=== PATIENT | female | born 1960 | race Caucasian/White ===

== ENCOUNTER 2022-11-21 13:56 | Inpatient (IN) | payer BC ==
[~2022-11-21] VITALS: Ht 170.2 cm; Wt 48.5 kg
[2022-11-21 14:45] LABS: HEMATOCRIT 36.9 % (31.2-41.9); MEAN CORPUSCULAR VOLUME 94.2 fL (75.5-95.3); RED BLOOD CELL COUNT(AUTO) 3.92 MIL/uL (3.63-4.92)
[2022-11-21 14:54] LABS: BASOPHILS % (AUTO) 0.9 % (0.0-2.0); EOSINOPHILS # (AUTO) 0.1 K/uL (0.0-0.7); HEMOGLOBIN 12.5 g/dL (10.9-14.3); LYMPHOCYTES # (AUTO) 1.4 K/uL (0.8-4.8); LYMPHOCYTES % (AUTO) 31.7 % (20.5-51.5); MEAN CORPUSCULAR HEMOGLOBIN 31.8 uug (24.7-32.8); MEAN CORPUSCULAR HGB CONC 34 g/dL (32.3-35.6); MONOCYTES # (AUTO) 0.4 K/uL (0.1-1.30); NEUTROPHILS # (AUTO) 2.5 K/uL (1.8-8.9); NEUTROPHILS % (AUTO) 55.4 % (38.5-71.5); PLATELET COUNT (AUTO) 183 K/uL (179-408); RED CELL DISTRIBUTION WIDTH 13.5 % (12.3-17.7); WHITE BLOOD COUNT (AUTO) 4.5 K/uL (3.8-11.8)
[2022-11-21 14:55] LABS: DIFFERENTIAL COMMENT 1
[2022-11-21 14:59] LABS: AMMONIA < 10 umol/L (11-32)
[2022-11-21 15:00] LABS: ETHANOL < 3 MG/DL (0-10)
[2022-11-21 15:06] LABS: THYROID STIMULATING HORMONE 0.971 mIU/mL (0.358-3.740)
[2022-11-21 15:09] LABS: ACETAMINOPHEN < 2.0 ug/mL (10-30); ALANINE AMINOTRANSFERASE 19 U/L (14-59); ALBUMIN 3.8 g/dL (3.4-5.0); ALKALINE PHOSPHATASE 69 U/L (50-136); ASPARTATE AMINOTRANSFERASE 16 U/L (15-37); BILIRUBIN,DIRECT 0.1 mg/dL (0.0-0.2); BILIRUBIN,TOTAL 0.4 mg/dL (0.2-1.0); CALCIUM 9.3 mg/dL (8.5-10.1); CARBON DIOXIDE 29 mmol/L (21-32); CHLORIDE 102 mmol/L (98-107); CREATININE 1.1 mg/dL (0.6-1.3); GLUCOSE 131 mg/dL (74-106); POTASSIUM 3.3 mmol/L (3.5-5.1); SODIUM SERUM 140 mmol/L (136-145); TOTAL PROTEIN, SERUM 6.5 g/dL (6.4-8.2); UREA NITROGEN, BLOOD 11 mg/dL (7-18)
[2022-11-21 16:10] LABS: *BILIRUBIN,URIN NEGATIVE (NEGATIVE); *CLARITY,URINE CLEAR (CLEAR); *COLOR,URINE YELLOW (YELLOW); *KETONES,URINE NEGATIVE (NEGATIVE); *PROTEIN,URINE NEGATIVE (NEGATIVE); *UROBILINOGEN,URINE 0.2 E.U./dl (NORMAL); LEUKOCYTE ESTERASE ,URINE NEGATIVE (NEGATIVE); NITRITE, URINE NEGATIVE (NEGATIVE); PH,URINE 7.5 (5.0-8.0); UGLUCOSE NEGATIVE (NEGATIVE)
[2022-11-21 16:14] LABS: *BLOOD, URINE TRACE (NEGATIVE)
[2022-11-21 16:26] LABS: *AMPHETAMINE, URINE NEGATIVE (NEGATIVE); *BARBITURATE, URINE POSITIVE (NEGATIVE); *BENZODIAZEPINE, URINE NEGATIVE (NEGATIVE); *CANNABINOID, URINE NEGATIVE (NEGATIVE); *COCCAINE, URINE NEGATIVE (NEGATIVE); *OPIATE, URINE NEGATIVE (NEGATIVE); *PHENCYCLIDINE SCREEN,URINE NEGATIVE (NEGATIVE); FENTANYL, URINE NEGATIVE (NEGATIVE)
[2022-11-21 16:34] LABS: BACTERIA,URINE FEW /HPF (NONE SEEN); RBC,URINE 0-3 /HPF (0-3); SQUAMOUS EPITHELIAL CELL,UR FEW /HPF (NONE SEEN); URINE AMORPHOUS URATE MODERATE /HPF; WBC,URINE NONE SEEN /HPF (0-3)
[2022-11-21] MEDS ORDERED: ONDANSETRON 4 MG/2 ML VIAL IV ONE (19:45)
[2022-11-21] MEDS ORDERED: ONDANSETRON 4 MG/2 ML VIAL ONE (19:54)
[2022-11-21 21:30] VITALS: BP 140/85; TEMP 97.1; O2SAT 98
[2022-11-21] MEDS ORDERED: LAMO200T10 PO (22:54)
[2022-11-21] MEDS ORDERED: PREG100C PO (22:54)
[2022-11-21] MEDS ORDERED: AMIT50TA3 PO (22:54)
[2022-11-21] MEDS ORDERED: CLON1TAB12 PO (22:54)
[2022-11-21] MEDS ORDERED: TRAM100T23 PO (22:54)
[2022-11-21] MEDS ORDERED: QUET300T2 PO (22:54)
[2022-11-21] MEDS ORDERED: PRIM250T32 PO (22:54)
[2022-11-21] MEDS ORDERED: NITR50CA4 PO (22:54)
[2022-11-21] MEDS ORDERED: PRIMIDONE 250 MG TABLET PO SCH (23:30)
[2022-11-21] MEDS ORDERED: AMITRIPTYLINE HCL 50 MG TABLET PO SCH (23:30)
[2022-11-21] MEDS ORDERED: NITROFURANTOIN/NITROFURAN MAC 100 MG CAPSULE PO SCH (23:30)
[2022-11-21] MEDS ORDERED: QUETIAPINE FUMARATE 200 MG TABLET PO SCH (23:30)
[2022-11-22 04:00] VITALS: BP 108/70; TEMP 98; O2SAT 97
[2022-11-22 08:15] VITALS: BP 141/79; TEMP 97.9; O2SAT 98
[2022-11-22] MEDS ORDERED: PREGABALIN 100 MG CAPSULE PO SCH (09:00)
[2022-11-22] MEDS ORDERED: CLONAZEPAM 1 MG TABLET PO SCH (09:00)
[2022-11-22] MEDS ORDERED: TRAMADOL HCL 50 MG TABLET PO SCH ×3 (09:00→12:26)
[2022-11-22] MEDS ORDERED: LAMOTRIGINE 200 MG TABLET PO ONE (09:00)
[2022-11-22] MEDS ORDERED: LAMOTRIGINE 200 MG TABLET PO SCH (09:00)
[2022-11-22] MEDS: PREGABALIN 100 MG CAPSULE PO SCH ×2 (09:25→12:15)
[2022-11-22] MEDS: CLONAZEPAM 1 MG TABLET PO SCH ×2 (09:25→12:16)
[2022-11-22] MEDS: LAMOTRIGINE 200 MG TABLET PO SCH ×2 (09:26→09:34)
[2022-11-22 16:13] VITALS: BP 125/80; TEMP 98.3; O2SAT 98
[2022-11-22] MEDS ORDERED: GADOTERATE MEGLUMINE 5 MMOL/10 ML VIAL IV ONE (20:39)
[2022-11-22] MEDS ORDERED: QUETIAPINE FUMARATE 100 MG TABLET PO SCH (21:00)
[2022-11-22] MEDS ORDERED: PRIMIDONE 250 MG TABLET PO SCH (21:00)
[2022-11-22] MEDS ORDERED: QUETIAPINE FUMARATE 200 MG TABLET PO SCH (21:00)
== END 2022-11-22 20:40 | disposition home or self-care (01) | DRG 60 ==
LOC: ER 13:56 → UNDOADMIN 20:42 → MEDSURG3 20:42
PROVIDERS: ADMIT Internal Medicine; ATTEND Internal Medicine
DX: G35 Multiple sclerosis (principal); G25.0 Essential tremor; M54.12 Radiculopathy, cervical region; Z87.440 Personal history of urinary (tract) infections; Z88.0 Allergy status to penicillin; Z88.2 Allergy status to sulfonamides; F39 Unspecified mood [affective] disorder; F32.9 Major depressive disorder, single episode, unspecified; R26.81 Unsteadiness on feet
CPT/HCPCS: 36415; 70030-TC; 70450; 71045; 72125; 83605; 84443; 85025; 85730; 87040; 93005; A4663; A9575; C1758; G0378; G0480; J2405